=== PATIENT | male | born 1960 | race Caucasian/White ===

== ENCOUNTER 2017-09-27 13:02 | Emergency (ER) | payer OTHER ==
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
[2017-09-27 14:01] VITALS: BP 120/76
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
== END 2017-09-27 14:00 | disposition home or self-care (01) ==
DX: S62.514B Nondisplaced fracture of proximal phalanx of right thumb, initial encounter for open fracture (principal); F17.200 Nicotine dependence, unspecified, uncomplicated; Y04.2XXA Assault by strike against or bumped into by another person, initial encounter
CPT/HCPCS: 73130; 99283; L3807

== ENCOUNTER 2018-03-02 19:59 | Inpatient (IN) | payer OTHER ==
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
[2018-03-02] MEDS ORDERED: OLANZapine DISINTEGR 5 MG TAB PO ONE (20:18)
[2018-03-02 20:30] LABS: PLATELET COUNT 325 10^3/uL (150-400)
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
--- NOTE | 2018-03-03 11:10 | ASMTTCLDSP ---
TLC Discharge Disposition Disposition: Answers: Admit Disposition Notes: Notes: Admit 3N. Discharge Concerns/Recommendations: Notes: In consultation with [facility] ED physician, Dave Velasco MD and on-call psychiatrist, Clayton John MD, both concurred that pt appears to meet 27-65 criteria requiring psychiatric hospitalization as pt appears to be at risk of harm to self/others/gravely disabled due to a mental illness condition. Pt was given the 3N prohibited belongings list while in the ED. Was patient given the Answers: Yes Inpatient Behavioral Health Prohibited Belongings List while in the ED? For inpatient Clayton John MD admission, the following psychiatrist agreed to accept patient for admission to Behavioral Health ([facility]): Type of Hold: Answers: M1/72-hour Hold Hold initiated by: Answers: Police Date Signed: 03/03/2018 11:09 AM Electronically Signed By:Derrek Franks
[2018-03-03] MEDS ORDERED: MAGNESIUM HYDROXIDE 30 ML UDCUP PO PRN (13:44)
[2018-03-03] MEDS ORDERED: NICOTINE POLACRILEX 2 MG GUM B PRN (13:44)
[2018-03-03] MEDS ORDERED: OLANZapine DISINTEGR 10 MG TAB PO PRN (13:44)
[2018-03-03] MEDS ORDERED: ACETAMINOPHEN 325 MG TAB PO PRN (13:44)
[2018-03-03] MEDS ORDERED: VENLAFAXINE XR 37.5 MG CAP PO ONE (14:43)
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
--- NOTE | 2018-03-03 18:42 | CPEKG ---
Test Reason : OPEN Blood Pressure : / mmHG Vent. Rate : 090 BPM Atrial Rate : 091 BPM P-R Int : 151 ms QRS Dur : 080 ms QT Int : 373 ms P-R-T Axes : 067 016 062 degrees QTc Int : 457 ms Sinus rhythm Biatrial enlargement Abnormal R-wave progression, early transition Confirmed by Delores Roy ([id number]) on 03/03/2018 6:41:50 PM Referred By: Confirmed By:Delores Roy
--- NOTE | 2018-03-03 19:30 | BCON ---
INTERNAL MEDICINE CONSULTATION DATE OF CONSULTATION: 03/03/2018 REFERRING PHYSICIAN: Clayton John MD REASON FOR REFERRAL: Medical clearance for inpatient behavioral health stay. HISTORY OF PRESENT ILLNESS: This patient was brought to the emergency department on an M1 hold with homicidal ideation. He was found to be manic. He was evaluated by the mental health team and admitted for further psychiatric care. He is currently without any acute complaints, though he asks whether I know how he can find a Lyme advocate as he reports a history of Lyme disease. PAST MEDICAL HISTORY: 1. Chronic Lyme disease. 2. Hepatitis. PAST SURGICAL HISTORY: Right forearm surgery. SOCIAL HISTORY: He is a heavy smoker. He is homeless. 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 MEDICATIONS: He was not taking any medications. ALLERGIES: There are no known drug allergies. FAMILY HISTORY: Noncontributory. REVIEW OF SYSTEMS: He denies cough or dyspnea, but he reports that he has noted an abnormal breathing pattern in which he has periods of rapid breathing and then much slower breathing. He notices this when he lies down. He has chronic chest pain, which happens to him every day. An EKG was done in the emergency department which was normal. Otherwise, a 10-point review of systems is negative. PHYSICAL EXAM: VITAL SIGNS: Blood pressure is 120/70, heart rate is 85, respiratory rate is 15, oxygen saturation 96% on room air, temperature is 36.8 degrees centigrade. His weight is 59 kg for a body mass index of 19.8. GENERAL : This is a well-nourished, well-developed man with a long, unkempt bergman and multiple tattoos, cooperative, and in no acute distress. HEENT: Extraocular movements are intact. Mucous membranes are moist. Dentition is in poor condition with multiple missing teeth. He has an uncrowded airway, Mallampati class 1. NECK: Supple. HEART: Regular rate and rhythm with no murmurs, rubs , or gallops. LUNGS: Clear to auscultation bilaterally with perhaps a prolonged expiratory phase. ABDOMEN: Benign. EXTREMITIES: There is no cyanosis, clubbing, or edema. Right hand has multiple deformities of the fingers. NEUROLOGIC: He is alert and oriented x3. Cranial nerves 2-12 are grossly intact. There is no focal weakness. Sensation is intact to light touch and gait is within normal limits. LABORATORY STUDIES: From the emergency department: CBC was normal. Serum chemistry revealed normal renal function and electrolytes. Toxicology screen in the serum was negative for ethyl alcohol and in the urine was negative for any substances of abuse. ASSESSMENT/RECOMMENDATIONS: 1. Mental health issues pending further evaluation and management per Psychiatry and the mental health team. 2. Tobacco dependence syndrome, advised smoking cessation. 3. Chronic right hand deformity. There is no further evaluation or treatment indicated while he is on the inpatient behavioral health unit. 4. Report of chronic Lyme disease. Doubt that there would be any psychiatric sequelae which should be considered by the treating mental health team. I see no medical contraindications to this patient's continued stay on the inpatient behavioral health unit or to any psychiatric medications or procedures. Thank you very much for including me in the care of this patient and please do not hesitate to contact me or the hospitalist service should there be need for further medical evaluation. /[id number]/MODL MTDD
--- NOTE | 2018-03-04 07:31 | SOAPPROG ---
SOAP Progress Note Assessment/Plan: Assessment: Major Depressive Disorder, Severe, with anxious distress; Cannabis Use Disorder , Alcohol Use Disorder suspected. Improvement noted. (see subjective/objective note). Patient could benefit from continued inpatient hospitalization for crisis stabilization, safety, and medication evaluation. Plan: 1. Psychotropic medications: After reviewing options, risks, and benefits patient agrees to continue current medications. No medication changes at this time as more time is needed to determine ongoing tolerability and efficacy. Plan is to continue to observe patient for response and side effects from medications, and ongoing monitoring and evaluation. 2. Review with patient informed consent and recommendations for psychotropic medication treatment listed below 3. Labs: no additional labs at this time 4. Therapy: continue milieu and group therapy 5. Further investigation including gathering information from patients relatives and review of past case records to inform treatment plan. 6. Safety/Wellness plan and follow-up outpatient appointments to be established prior to discharge. Next steps are for patient to meet with cattle care worker to plan a safe discharge plan and establish outpatient services for ongoing treatment. 7. Confer with inpatient treatment team regarding treatment plan. 8. Psychosocial stressors addressed through case management 9. Legal status: M1 10. Consider discharge on Friday if patient is in stable condition, safe, and has a safe discharge plan. 11. Substance abuse interventions: alcohol and cannabis PSYCHOTROPIC MEDICATION TREATMENT INFORMED CONSENT and RECOMMENDATIONS: Review nature of condition, diagnosis, and prognosis. Review nature and purpose of psychotropic medication treatment. Review type of psychotropic medications being ordered. Review risk and benefits of psychotropic medication treatment. Review probable length of time patient will need to take medications. Review risk and benefits of not undergoing psychotropic medication treatment. Review alternative treatments to psychotropic medications. Review psychotropic medications contraindications, drug-drug interactions, side effects, and importance of reporting any side effects to a psychiatric provider or nurse during inpatient hospitalization, and upon discharge to patients psychiatric outpatient provider, primary care provider, or other health hospice care sales consultant. Review importance of asking a nurse, psychiatric provider, or primary care provider any questions or problems concerning the psychotropic medications. Verify patient understands the information that has been provided, and understands, accepts, and agrees to psychotropic medications. Review patients safety plan and importance of patient to report to staff while hospitalized if patient is ever a danger to self/others, or unable to care for self, and upon discharge, the importance for patient to contact [facility] or [facility], or go to the nearest emergency room, if patient is ever a danger to self/others, or unable to care for self. Recommend that upon discharge patient establish medication management treatment with a psychiatric provider, establishes routine therapy appointments, and follow-up with primary care provider. Verify patient understands and agrees to these recommendations. 03/04/18 07:30 Subjective: Following up with patient for evaluation of depression and safety. Patient reports, "Feeling a lot better." Patient expresses the following psychiatric symptoms none. Patient describes getting 8 hours of sleep, and reports feeling rested today. Patient reports taking medications as prescribed, and describes response to medications as good. Patient does not report undesirable side effects from the medications, and agrees to continue current medications. Patient reports no SI/HI, no A/V hallucinations, and no delusions. Patient no longer reports symptoms he was reporting prior to his admission. Objective: Vital Signs Temp Pulse Resp BP Pulse Ox 36.3 C 70 16 125/76 H 97 03/04/18 06:00 03/04/18 06:00 03/04/18 06:00 03/04/18 06:00 03/04/18 06:00 NURSING REPORT: Consulted with nursing for update on patients progress in treatment. Nurses report patient is not engaged in treatment, is not attending groups, slept 10 hours, withdrawn to his room yesterday upon admission; expresses the following psychiatric symptoms: severe depression, exhibits the following psychiatric symptoms: flat affect, withdrawn; is eating all meals, and denies SI/HI, denies A/V hallucinations, and denies delusions. LEGISLATIVE ANALYST UPDATE: establish safe discharge plan including appointments for OP services; referrals and [facility] to [facility]. OBSERVATION OF PATIENT IN [place]: patient has bright affect is relaxed and interacting appropriately with other patients; no signs of psychosis or fab; patient does not appear to be depressed or anxious. SUBSTANCE ABUSE BRIEF INTERVENTION: Brief intervention regarding the risks of alcohol and cannabis abuse is provided to patient with goal to reduce the risk of harm that could result from the continued use of alcohol and cannabis, with the general aim to investigate the problem, raise awareness of problem, develop a solution with the patient, recommend a specific change or activity, and motivate the patient toward change. Assess substance abuse behavior and give supportive advice about harm reduction, recommend a reduction in hazardous/at- risk consumption patterns, and facilitate referrals for additional specialized treatment with care professionals. Intermediate goal is for the patient to quit and attend outpatient substance abuse treatment. Intervention focus on intermediate goals to allow for more immediate success in the treatment process to keep the patient motivated. Review following with patient: Cannabis use risks: Short-term use: impaired short-term memory, impaired motor coordination, altered judgement, in high doses paranoia and psychosis. Long-term use addiction, diminished life satisfaction and achievement, symptoms of chronic bronchitis, and increased risk of chronic psychosis disorders if predisposition to such disorders. In withdrawal anger, aggression irritability, anxiety and nervousness, decreased appetite or weight loss, restlessness, and sleep difficulties with strange dreams. Alcohol/Binge Drinking risks: short-term: injuries, violence, alcohol poisoning, risky sexual behaviors. Long-term: high blood pressure, stroke, liver disease, digestive problems, cancer, learning and memory problems, depression and anxiety, social problems, and alcohol dependence. OUTPATIENT SUBSTANCE ABUSE TREATMENT: Patient referred to outpatient provider and treatment for continued treatment related to substance abuse. MSE: The patient is casually dressed and with good hygiene, and looks stated age. Patient is sitting, posture is upright, and position is relaxed. Patient appears awake, alert, and responds appropriately and reasonably during interview. Patient is engaged, relates well to interviewer, and emotional facial expression is appropriate to situation and changes appropriately with topic. Patient is cooperative, makes comfortable eye contact, and movements are voluntary, deliberate, coordinated, and smooth and even with no inappropriate movements. Patient makes laryngeal sounds effortlessly and shares conversation appropriately; pace of conversation is appropriate, and stream of talking is fluent; articulation is clear and understandable; word choice is effortless and appropriate for education level; completes sentences, occasionally pausing to think; rate and volume are appropriate for interview and setting. Patient reports mood as euthymic. Patients affect is stable with full variable range, congruent with mood, and appropriate to speech and circumstances. Patient has linear and logical thinking, with no loose associations, tangential thought, thought blocking, concrete thinking, or any other signs of formal thought disorder. Patient denies suicidal and homicidal ideation, and denies hallucinations and delusions. Patient appears to be a reliable historian with sound judgement and good insight into current condition. Patient has no apparent dysfunction in recent or remote memory noted , and no evidence of gross cognitive dysfunction noted at any point during the interview. - Time Spent With Patient Time Spent With Patient: 15 minutes, met with patient individually. - Pending Discharge Pending Discharge Within 24 Hours: No Pending Discharge Within 48 Hours: No ICD10 Worksheet Patient Problems: Problems Problem Status Onset Alcohol use disorder, moderate, dependence Acute Cannabis use disorder, moderate, dependence Acute Homelessness Acute Major depressive disorder, recurrent episode, severe with anxious distress Chronic
[2018-03-04] MEDS: VENLAFAXINE XR 37.5 MG CAP PO SCH (09:05)
--- NOTE | 2018-03-04 10:51 | PDMN ---
Medical Necessity Medical necessity: Pt meets IP criteria as of 03/03/2018 per [facility] and [id number] ; est los > 2 mn for ongoing management and tx of major depressive disorder; on M1 hold for SI/HI; requiring further monitoring, safety, crisis stabilization and med management. Hx homelessness
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
[2018-03-05 06:51] VITALS: BP 123/76
--- NOTE | 2018-03-05 08:04 | SOAPPROG ---
SOAP Progress Note Assessment/Plan: Assessment: Major Depressive Disorder, Severe, with anxious distress; Cannabis Use Disorder , Malingering suspected, Alcohol Use Disorder suspected. Improvement noted; plan for discharge tomorrow (see subjective/objective note). Patient could benefit from continued inpatient hospitalization for crisis stabilization, safety, and medication evaluation. Plan: 1. Psychotropic medications: After reviewing options, risks, and benefits patient agrees to continue current medications. No medication changes at this time as more time is needed to determine ongoing tolerability and efficacy. Plan is to continue to observe patient for response and side effects from medications, and ongoing monitoring and evaluation. 2. Review with patient informed consent and recommendations for psychotropic medication treatment listed below 3. Labs: no additional labs at this time 4. Therapy: continue milieu and group therapy 5. Further investigation including gathering information from patients relatives and review of past case records to inform treatment plan. 6. Safety/Wellness plan and follow-up outpatient appointments to be established prior to discharge. Next steps are for patient to meet with rehab care assistant to plan a safe discharge plan and establish outpatient services for ongoing treatment. 7. Confer with inpatient treatment team regarding treatment plan. 8. Psychosocial stressors addressed through case management 9. Legal status: M1 10. Consider discharge on Friday if patient is in stable condition, safe, and has a safe discharge plan. 11. Substance abuse interventions: alcohol and cannabis PSYCHOTROPIC MEDICATION TREATMENT INFORMED CONSENT and RECOMMENDATIONS: Review nature of condition, diagnosis, and prognosis. Review nature and purpose of psychotropic medication treatment. Review type of psychotropic medications being ordered. Review risk and benefits of psychotropic medication treatment. Review probable length of time patient will need to take medications. Review risk and benefits of not undergoing psychotropic medication treatment. Review alternative treatments to psychotropic medications. Review psychotropic medications contraindications, drug-drug interactions, side effects, and importance of reporting any side effects to a psychiatric provider or nurse during inpatient hospitalization, and upon discharge to patients psychiatric outpatient provider, primary care provider, or other health career education teacher. Review importance of asking a nurse, psychiatric provider, or primary care provider any questions or problems concerning the psychotropic medications. Verify patient understands the information that has been provided, and understands, accepts, and agrees to psychotropic medications. Review patients safety plan and importance of patient to report to staff while hospitalized if patient is ever a danger to self/others, or unable to care for self, and upon discharge, the importance for patient to contact [facility] or 911, or go to the nearest emergency room, if patient is ever a danger to self/others, or unable to care for self. Recommend that upon discharge patient establish medication management treatment with a psychiatric provider, establishes routine therapy appointments, and follow-up with primary care provider. Verify patient understands and agrees to these recommendations. 03/05/18 08:04 Subjective: Following up with patient for evaluation of depression and safety. Patient reports, "Feeling good." Patient expresses the following psychiatric symptoms "a little depressed, but much better." Patient describes getting 8 hours of sleep, and reports feeling rested today. Patient reports taking medications as prescribed, and describes response to medications as good. Patient does not report undesirable side effects from the medications, and agrees to continue current medications. Patient reports no SI/HI, no A/V hallucinations, and no delusions. Objective: Vital Signs Temp Pulse Resp BP Pulse Ox 36.5 C 57 L 16 123/76 H 97 03/05/18 06:00 03/05/18 06:00 03/05/18 06:00 03/05/18 06:00 03/05/18 06:00 - Time Spent With Patient Time Spent With Patient: 15 minutes, met with patient individually. - Pending Discharge Pending Discharge Within 24 Hours: Yes Pending Discharge Within 48 Hours: No Pending Discharge Date: 03/06/18 Pending Discharge Time: 11:00 ICD10 Worksheet Patient Problems: Problems Problem Status Onset Alcohol use disorder, moderate, dependence Acute Cannabis use disorder, moderate, dependence Acute Homelessness Acute Malingering Acute Major depressive disorder, recurrent episode, severe with anxious distress Chronic
[2018-03-05] MEDS: VENLAFAXINE XR 37.5 MG CAP PO SCH (09:29)
--- NOTE | 2018-03-05 14:45 | ASMTBHDC ---
Notes Note: Notes: CC was able to assist in purchasing client a greyhound bus ticket in order for him to return to his home town of [place], [place]. Additionally, CC was able to find the local mental health center in [place] where client will living and provided all necessary contact information to client (posted in discharge checklist). Follow up with: Client to follow up with [facility] in [place], [place] [facility] [place] Office [address] [place] [address], [address] [place] [address] For referrals or admissions please call us at Date Signed: 03/05/2018 02:44 PM Electronically Signed By:Howard Haney
--- NOTE | 2018-03-06 08:21 | BDS ---
REASON FOR ADMISSION: From the ED note dated 03/02/2018, the patient is a transient, originally from [place], accompanied by police on an M1 hold for paranoia and homicidal ideation, presented to the emergency room. The patient also reported suicidal ideation. The patient reported all conditions that meet criteria for M1 hold including suicidal ideation, homicidal ideation, and paranoia, which would likely be deemed appropriate for grave disability. The patient was admitted involuntarily on an M1 hold due to being a danger to himself or others and being gravely disabled. The patient was admitted for safety crisis stabilization and medication management. ADMITTING DIAGNOSES: 1. Rule out malingering. 2. Homelessness. 3. Cannabis use disorder, moderate. 4. Alcohol use disorder, moderate. 5. Major depressive disorder, recurrent episode, severe, with anxious distress. ADMISSION PHYSICAL EXAM: The patient was seen on 03/03/2018, for internal medicine consultation for medical clearance for inpatient psychiatric hospitalization and treatment. The patient was medically cleared for inpatient psychiatric hospitalization and treatment. For further details, please refer to consultation note dated 03/03/2018. MAJOR PROCEDURES OR TESTS: None. HOSPITAL COURSE: The most prominent symptoms and behaviors while the patient was here were the patient's reports of moderate depression. The patient did not appear nor present to be depressed, or presented with any other psychiatric symptoms. As soon as patient was hospitalized, he no longer reported any of the symptoms that met criteria for M1 hold that he was reporting prior to his hospitalization, including denied suicidal ideation, denied homicidal ideation, and denied any paranoia or any other symptoms of psychosis. Effexor XR 37.5 mg was started to target depression symptoms, was tolerated with no report of side effects and with good response. The patient has improved considerably with no signs of psychiatric symptoms and no psychiatric symptoms expressed. At time of discharge, the patient reports he has improved since admission. States to be in stable condition. Feels safe to discharge and he contracts for safety. The patient's response to treatment was good. There were no adverse or unexpected results of treatment. The patient was safe throughout his stay, active in treatment, engaged in groups, and was appropriate with staff and other patients. The patient met with members of the treatment team prior to his discharge to assess readiness to discharge and reviewed discharge plan. The treatment team consensus is the patient is in stable condition, has a safe discharge plan and is ready to discharge today. CONDITION AT DISCHARGE: Patient is in stable condition and is no longer a danger to self or others, and is not gravely disabled due to mental illness. Patient is no longer in need of inpatient level of care, and can be safely and effectively treated within the community. The patients level of risk at time of discharge is low. MSE: The patient is casually dressed and with good hygiene , and looks stated age. Patient is sitting, posture is upright, and position is relaxed. Patient appears awake, alert, and responds appropriately and reasonably during interview. Patient is engaged, relates well to interviewer, and emotional facial expression is appropriate to situation and changes appropriately with topic. Patient is cooperative, makes comfortable eye contact , and movements are voluntary, deliberate, coordinated, and smooth and even with no inappropriate movements. Patient makes laryngeal sounds effortlessly and shares conversation appropriately; pace of conversation is appropriate, and stream of talking is fluent; articulation is clear and understandable; word choice is effortless and appropriate for education level; completes sentences, occasionally pausing to think; rate and volume are appropriate for interview and setting. Patient reports mood as euthymic. Patients affect is stable with full variable range, congruent with mood, and appropriate to speech and circumstances. Patient has linear and logical thinking, with no loose associations, tangential thought, thought blocking, concrete thinking, or any other signs of formal thought disorder. Patient denies suicidal and homicidal ideation, and denies hallucinations and delusions. Patient appears to be a reliable historian with sound judgement and good insight into current condition. Patient has no apparent dysfunction in recent or remote memory noted , and no evidence of gross cognitive dysfunction noted at any point during the interview. DISCHARGE DIAGNOSES: 1. Malingering. 2. Homelessness. 3. Cannabis use disorder, moderate. 4. Alcohol use disorder, moderate. 5. Major depressive disorder, recurrent episode, severe, with anxious distress. CURRENT MEDICATIONS: After reviewing options, risks and benefits with the patient, the patient agrees to continue Effexor XR 37.5 mg p.o. daily for depression. Patient requests prescription for this medication at time of discharge. Prescription for 30 days is provided to the patient at time of discharge, the prescription is reviewed with the patient at time of discharge to ensure accuracy and patient understanding. DISPOSITION: The patient left hospital independently and voluntarily with plans to travel to [place] to be closer to his family for support. FOLLOWUP: ocean export coordinator reports the appropriate outpatient follow-up services have been established and outpatient appointments have been scheduled. The patient received written instructions with times and dates of outpatient follow-up appointments. The following follow-up recommendations were provided to the patient at discharge: Continue psychotropic medications as prescribed and attend appointments as scheduled. Report any side effects to a psychiatric outpatient provider, a primary care provider, or other health care asst. Address any questions or problems concerning the psychotropic medications with a psychiatric outpatient provider, a primary care provider, or other health care asst. Contact [facility] or [facility], or go to the nearest emergency room, if you are ever a danger to yourself/others, or unable to care for yourself. As soon as possible, establish a routine medication management treatment with a psychiatric provider, establish routine therapy appointments, and follow-up with a primary care provider. LEGAL COURSE: The patient was admitted on an M1 hold for involuntary psychiatric hospitalization. The patient discharged today independently and voluntarily. ATTITUDE AT TIME OF DISCHARGE: The patients attitude was positive at time of discharge, and patient reports looking forward to discharging today. The patient reports he feels safe to discharge, is no longer a danger to himself or others, is in stable condition, and contracts for safety. Patient states he will continue medications as prescribed, and establish medication management treatment with an outpatient provider after discharge. Patient reports he understands the information that has been provided to him, and he understands, accepts, and agrees to psychotropic medications. Patient describes internal protective factors as the coping skills he has learned while hospitalized here, and he plans to continue to practice these coping skills after discharge. LABS AND STUDIES: There were no pending labs or studies at time. ADVANCE DIRECTIVES: There were no advance directives on file, and patient was full code during this hospitalization. The following psychotropic medication treatment informed consent and recommendations were provided to the patient at time of discharge. Patient reports he understands, accepts, and agrees to the information that has been provided. PSYCHOTROPIC MEDICATION TREATMENT INFORMED CONSENT and RECOMMENDATIONS: Review nature of condition, diagnosis, and prognosis. Review nature and purpose of psychotropic medication treatment. Review type of psychotropic medications being prescribed. Review risk and benefits of psychotropic medication treatment. Review probable length of time will need to take medications. Review risk and benefits of not undergoing psychotropic medication treatment. Review alternative treatments to psychotropic medications. Review psychotropic medications contraindications, side effects, and importance of reporting any side effects to a psychiatric provider, primary care provider, or other health care asst. Review importance of asking a psychiatric provider or primary care provider any questions or problems concerning the psychotropic medications. Review safety plan and the importance to contact [facility] or [facility] , or go to the nearest emergency room, if ever a danger to yourself/others, or unable to care for yourself. Recommend upon discharge to establish routine medication management treatment with a psychiatric provider, establish routine therapy appointments, and follow-up with a primary care provider. Verify patient understands, accepts, and agrees to the information that has been provided. /[id number]
== END 2018-03-06 05:55 | disposition home or self-care (01) | DRG 885 ==
LOC: BBEH 03-03 11:30
PROVIDERS: ADMIT Psychiatry & Neurology Psychiatry; ATTEND Psychiatry & Neurology Psychiatry
DX: F33.3 Major depressive disorder, recurrent, severe with psychotic symptoms (principal); Z76.5 Malingerer [conscious simulation]; F12.959 Cannabis use, unspecified with psychotic disorder, unspecified; Z59.0 Homelessness; Z72.89 Other problems related to lifestyle; F17.200 Nicotine dependence, unspecified, uncomplicated; M21.941 Unspecified acquired deformity of hand, right hand
CPT/HCPCS: 80305; G0480